=== PATIENT | female | born 1970 | race Caucasian/White ===

== ENCOUNTER 2019-01-29 14:35 | Emergency (ER) | payer OTHER ==
[~2019-01-29] VITALS: Ht 162.6 cm; Wt 172.0 kg
[2019-01-29] MEDS ORDERED: IV NORMAL SALINE 1,000ML 1,000 ML IV ONE (15:00)
[2019-01-29] MEDS ORDERED: MECLIZINE 12.5 MG TABLET. PO STA (15:05)
--- NOTE | 2019-01-29 15:11 | PHYS DOC ---
Past History Past Medical History: No Pertinent History Smoking: Non-smoker Alcohol Use: Rarely Drug Use: None Adult General Chief Complaint Chief Complaint: DIZZY/LIGHT HEADED HPI HPI Patient is a 48-year-old female presents with dizziness. This started as she was on her way to ankle rehabilitation. Denies any headache. Reports some blurred vision. No chest pain or palpitations. There is a rotational component, worse with head movement, nausea is present. No vomiting. There has been limited oral intake today. Symptoms are moderate in intensity.[] Review of Systems Review of Systems Constitutional: Denies fever or chills [] Eyes: Denies change in visual acuity, redness, or eye pain [] HENT: Denies nasal congestion or sore throat [] Respiratory: Denies cough or shortness of breath [] Cardiovascular: No chest pain or palpitations[] GI: Denies abdominal pain, nausea, vomiting, bloody stools or diarrhea [] : Denies dysuria or hematuria [] Musculoskeletal: Denies back pain or joint pain [] Integument: Denies rash or skin lesions [] Neurologic: Denies headache, focal weakness or sensory changes, see history of present illness [] Endocrine: Denies polyuria or polydipsia [] All other systems were reviewed and found to be within normal limits, except as documented in this note. Current Medications Current Medications Current Medications Medications (Trade) Dose Ordered Sig/Lacey Start Time Stop Time Status Last Admin Dose Admin Meclizine HCl (Antivert) 25 mg 1X STAT 01/29/19 14:52 01/29/19 14:53 UNV Sodium Chloride 1,000 ml @ 1,000 mls/hr 1X ONCE 01/29/19 15:00 01/29/19 15:59 UNV Physical Exam Physical Exam Constitutional: Well developed, well nourished, no acute distress, non-toxic appearance. [] HENT: Normocephalic, atraumatic, bilateral external ears normal, oropharynx moist, no oral exudates, nose normal. [] Eyes: PERRLA, EOMI, conjunctiva normal, no discharge. [] Neck: Normal range of motion, no tenderness, supple, no stridor. [] Cardiovascular:Heart rate regular rhythm, no murmur [] Lungs & Thorax: Bilateral breath sounds clear to auscultation [] Abdomen: Bowel sounds normal, soft, no tenderness, no masses, no pulsatile masses. [] Skin: Warm, dry, no erythema, no rash. [] Back: No tenderness, no CVA tenderness. [] Extremities: No tenderness, no cyanosis, no clubbing, ROM intact, no edema. [] Neurologic: Alert and oriented X 3, normal motor function, normal sensory function, no focal deficits noted. [] Psychologic: Affect normal, judgement normal, mood normal. [] EKG EKG EKG shows a sinus rhythm at 61 bpm, normal axis, normal QTC at 422 ms, no ST el evation. No old EKG available for comparison. Interpreted by me at 1514[] Radiology/Procedures Radiology/Procedures PROCEDURE: CT HEAD WO CONTRAST EXAM: Head CT without contrast. HISTORY: Dizziness. TECHNIQUE: Computed tomographic images of the head were obtained without contrast. *One or more of the following individualized dose reduction techniques were utilized for this examination: 1. Automated exposure control. 2. Adjustment of the mA and/or kV according to patient size. 3. Use of iterative reconstruction technique. COMPARISON: None. FINDINGS: There is no acute or subacute extra-axial or intraparenchymal hemorrhage. There is no mass effect or midline shift. There is no hydrocephalus. The vargas-white matter differentiation pattern is intact. The visualized portions of the orbits, paranasal sinuses and mastoid air cells are unremarkable. No suspicious calvarial lesion is seen. IMPRESSION: No acute intracranial findings. PROCEDURE: PORTABLE CHEST 1V PORTABLE CHEST 1V History: Dizziness. COMPARISON: None FINDINGS: Heart size is not enlarged. No evidence of pneumothorax. No pleural effusion. No evidence of focal infiltrate. Bones appear grossly intact. IMPRESSION: No evidence of consolidating infiltrate.[] Course & Med Decision Making Course & Med Decision Making Pertinent Labs and Imaging studies reviewed. (See chart for details) ED course: Patient arrived, was placed in bed, and tolerated exam well. Orthostatic vital signs were performed as noted in the chart. She was not orthostatic positive. Hallpike maneuver was performed, patient had symptoms but no definitive nystagmus. She was given IV fluids as well as Antivert. Symptoms improved during her emergency department stay. She was transported to and from [place] with any complications. After the return of the laboratory and CT findings, these were discussed with the patient who voiced understanding. All questions were answered. She was discharged in improved condition. Medical decision making: This does not appear to be a stroke syndrome. No evidence of mass or bleed. No evidence of electrolyte abnormality. No evidence of significant hydration deficit.[] Dragon Disclaimer Dragon Disclaimer This electronic medical record was generated, in whole or in part, using a voice recognition dictation system. Departure Departure: Impression: Primary Impression: Dizziness Disposition: HOME, SELF-CARE Condition: IMPROVED Referrals: [facility] (PCP) Patient Instructions: Vertigo Additional Instructions: Follow-up with your regular doctor in 2 days. Return to the ER if worsening dizziness, unable to tolerate liquids, or any other concerns. Scripts Ondansetron Hcl (ZOFRAN) 4 Mg Tablet 1 TAB PO Q6HRS for nausea or vomiting, #20 TAB Prov: HIWOT CANNON DO 01/29/19 Meclizine Hcl (MECLIZINE HCL) 25 Mg Tablet 1 TAB PO PRN TID for vertigo, #30 TAB Prov: HIWOT CANNON DO 01/29/19 HIWOT CANNON DO Jan 29, 2019 15:11
[2019-01-29] MEDS ORDERED: ONDANSETRON PF 4 MG/2 ML VIAL. IVP ONE (15:15)
[2019-01-29 15:25] LABS: BASO % 1 % (0-3); EOS # 0.1 x10^3/uL (0.0-0.7); EOS % 1 % (0-3); HEMATOCRIT 43.4 % (36.0-47.0); HEMOGLOBIN 14.6 g/dL (12.0-15.5); LYMPH # 1.7 x10^3/uL (1.0-4.8); LYMPH % 22 % (24-48); MEAN CORPUSCULAR HEMOGLOBIN 31 pg (25-35); MEAN CORPUSCULAR HGB CONC 34 g/dL (31-37); MEAN CORPUSCULAR VOLUME 91 fL (79-100); MONO # 0.7 x10^3/uL (0.0-1.1); MONO % 9 % (0-9); NEUT # 5.3 x10^3uL (1.8-7.7); NEUT % 68 % (31-73); PLATELET COUNT 266 x10^3/uL (140-400); RED BLOOD COUNT 4.77 x10^6/uL (3.50-5.40); RED CELL DISTRIBUTION WIDTH 13.3 % (11.5-14.5); WHITE BLOOD COUNT 7.7 x10^3/uL (4.0-11.0)
[2019-01-29 15:33] LABS: ALBUMIN 4.1 g/dL (3.4-5.0); CALCIUM 9.6 mg/dL (8.5-10.1); CREATININE 1.2 mg/dL (0.6-1.0); GFR 47.7; MAGNESIUM 2.1 mg/dL (1.8-2.4); POTASSIUM 3.5 mmol/L (3.5-5.1); TOTAL BILIRUBIN 0.2 mg/dL (0.2-1.0); TOTAL PROTEIN 8.1 g/dL (6.4-8.2)
--- NOTE | 2019-01-29 15:38 | RAD ---
EXAM: Head CT without contrast. HISTORY: Dizziness. TECHNIQUE: Computed tomographic images of the head were obtained without contrast. *One or more of the following individualized dose reduction techniques were utilized for this examination: 1. Automated exposure control. 2. Adjustment of the mA and/or kV according to patient size. 3. Use of iterative reconstruction technique. COMPARISON: None. FINDINGS: There is no acute or subacute extra-axial or intraparenchymal hemorrhage. There is no mass effect or midline shift. There is no hydrocephalus. The vargas-white matter differentiation pattern is intact. The visualized portions of the orbits, paranasal sinuses and mastoid air cells are unremarkable. No suspicious calvarial lesion is seen. IMPRESSION: No acute intracranial findings. Electronically signed by: Ml Sung MD (01/29/2019 3:35 PM) [place] [id number]
[2019-01-29 15:40] VITALS: BP 159/102
--- NOTE | 2019-01-29 15:47 | RAD ---
PORTABLE CHEST 1V History: Dizziness. COMPARISON: None FINDINGS: Heart size is not enlarged. No evidence of pneumothorax. No pleural effusion. No evidence of focal infiltrate. Bones appear grossly intact. IMPRESSION: No evidence of consolidating infiltrate. Electronically signed by: Feliz Otto MD (01/29/2019 3:44 PM) [facility]
[2019-01-29 15:55] LABS: BARBITURATES NEG (NEG); BENZODIAZEPINES NEG (NEG); CANNABINOIDS NEG (NEG); COCAINE NEG (NEG); METHADONE NEG (NEG); OPIATES NEG (NEG); PHENCYCLIDINE NEG (NEG)
[2019-01-29 15:57] LABS: AMPHETAMINE/METHAMPHETAMINE NEG (NEG)
[2019-01-29 16:14] LABS: BACTERIA,URINE FEW /HPF (0-FEW); BILIRUBIN,URINE NEG (NEG); CLARITY,URINE CLEAR; COLOR,URINE COLORLESS; GLUCOSE,URINE NEG (NEG); NITRITE,URINE NEG (NEG); RBC,URINE OCC /HPF (0-2); SQUAMOUS EPITHELIAL CELL,UR FEW /LPF; UROBILINOGEN,URINE 0.2 mg/dL (0.2 mg/dL)
[2019-01-29] MEDS ORDERED: MECL25TA3 PO (16:27)
[2019-01-29] MEDS ORDERED: ONDA4TAB7 PO (16:27)
--- NOTE | 2019-01-30 07:05 | EKG ---
[address] [address] Test Date: 2019-01-29 Test Time: 15:10:17 Pat Name: MEJIA GONZALEZ Department: Room: Gender: F [employer]: : 1970 Requested By: HIWOT CANNON Order Number: [id number] Reading MD: Ruslan Seymour MD Measurements Intervals [place] Rate: 61 P: 23 VA: 154 QRS: 53 QRSD: 80 T: 5 QT: 414 QTc: 422 Interpretive Statements SINUS RHYTHM Electronically Signed On 02-06-2019 10:10:37 CDT by Ruslan Seymour MD
== END 2019-01-29 16:36 | disposition home or self-care (01) ==
LOC: ER 14:35
DX: R42 Dizziness and giddiness (principal); H53.8 Other visual disturbances
CPT/HCPCS: 36415; 70450; 71045; 80053; 80307; 81001; 83735; 85025; 93005; 96361; 96374; 99285; J2405; J8597; J7030

== ENCOUNTER → 2020-07-11 | Outpatient (CLI) | payer OTHER ==
[~2020-07-11] MED LIST: MECL-75 PO; ONDA4TAB7 PO
== END ==
LOC: LAB 09:30
PROVIDERS: ATTEND Nurse Anesthetist, Certified Registered
DX: Z01.812 Encounter for preprocedural laboratory examination (principal); Z13.9 Encounter for screening, unspecified; Z20.822 Contact with and (suspected) exposure to COVID-19
CPT/HCPCS: U0003